=== PATIENT | male | born 2000 | race Caucasian/White ===

== ENCOUNTER 2024-02-23 20:30 | Emergency (ER) | payer OTHER ==
[~2024-02-23] VITALS: Ht 177.8 cm; Wt 125.0 kg
[2024-02-23 20:35] VITALS: BP 123/71; PULSE 84; RESP 16; TEMP 97.8; O2SAT 98
== END 2024-02-23 23:22 | disposition left against medical advice (07) ==
LOC: ER 20:30
DX: M54.9 Dorsalgia, unspecified (principal); Z53.21 Procedure and treatment not carried out due to patient leaving prior to being seen by health care provider